=== PATIENT | female | born 1965 | race Caucasian/White ===

== ENCOUNTER 2023-07-18 08:53 | Outpatient (CLI) | payer OTHER ==
[~2023-07-18 08:53] MED LIST: ANAPROX275 MG PO; CELEBREX200MG PO; DIAZEPAM10 MG PO; EVISTA60 MG PO; SKELAXIN800 MG PO; VITAMIN D350000 UNIT PO; ZITHROMAX500 MG PO
== END 2023-07-18 08:59 | disposition home or self-care (01) ==
LOC: SONOGRAMA 08:53
DX: M25.562 Pain in left knee (principal); M76.892 Other specified enthesopathies of left lower limb, excluding foot